=== PATIENT | female | born 1970 | race Caucasian/White ===

== ENCOUNTER 2018-05-07 07:26 | Emergency (ER) | payer BC, OTHER ==
[~2018-05-07] VITALS: Ht 172.7 cm; Wt 79.5 kg
[2018-05-07 07:30] VITALS: TEMP 98.4
[2018-05-07 08:11] LABS: BASO # 0.1 (0.0-0.2); BASO % 0.3 % (0.0-2.0); GRAN # 15.3 (1.4-6.5); GRAN % 88.1 % (42.2-75.2); LYMPH # 0.9 (1.2-3.4); LYMPH % 5.3 % (20.0-51.0); MEAN CELL VOLUME 95 fl (80.0-100.0); MEAN CORPUSCULAR HEMOGLOBIN 32 pg (27.0-31.0); MEAN CORPUSCULAR HGB CONC 33 g/dl (33.0-37.0); MEAN PLATELET VOLUME 10.2 fl (7.4-10.4); PLATELET COUNT 296 K/mm3 (130-400); RED BLOOD COUNT 4.76 M/mm3 (4.10-5.30); REDCELL DISTRIBUTION WIDTH-CV 12.5 % (11.5-14.5)
[2018-05-07 08:23] LABS: ALBUMIN 4.5 gm/dL (3.5-5.0); BILIRUBIN,TOTAL 0.5 mg/dL (0.0-1.0); CALCIUM 9.8 mg/dL (8.4-10.2); CREATININE, serum 1.01 mg/dL (0.52-1.25); POTASSIUM 3.7 mmol/L (3.4-5.0); TOTAL PROTEIN 7.9 gm/dL (6.4-8.2)
[2018-05-07] MEDS ORDERED: AMITRIPTYLINE H25 M1 PO (10:34)
[2018-05-07] MEDS ORDERED: PRINZIDE 12.5 M1 TA1 PO (10:35)
[2018-05-07] MEDS ORDERED: ZYRTEC 10MG10 MG PO (10:35)
[2018-05-07] MEDS ORDERED: LOESTRIN 24 FE1 TAB PO (10:36)
[2018-05-07] MEDS ORDERED: PHENERGAN 25 TA25 MG PO (12:24)
[2018-05-07] MEDS ORDERED: FLAGYL500 MG PO (12:24)
[2018-05-07] MEDS ORDERED: CIPRO 500MG TA500 MG PO (12:24)
[2018-05-07] MEDS ORDERED: ZOFRAN 4MG T4 MG/TAB PO (12:24)
[2018-05-07 13:05] VITALS: BP 123/87; PULSE 96
== END 2018-05-07 13:08 | disposition home or self-care (01) ==
LOC: COL.ER 07:26
PROVIDERS: Emergency Medicine
DX: K52.9 Noninfective gastroenteritis and colitis, unspecified (principal); Z88.0 Allergy status to penicillin
CPT/HCPCS: J2405; J2550; J7030; Q9967

== ENCOUNTER → 2019-07-24 | Outpatient (CLI) | payer OTHER ==
[~2019-07-24] MED LIST: AMITRIPTYLINE H25 M1 PO; CIPRO 500MG TA500 MG PO; FLAGYL500 MG PO; LOESTRIN 24 FE1 TAB PO; PHENERGAN 25 TA25 MG PO; PRINZIDE 12.5 M1 TA1 PO; ZOFRAN 4MG T4 MG/TAB PO; ZYRTEC 10MG10 MG PO
== END ==
LOC: COL.RAD 08:05
DX: R91.8 Other nonspecific abnormal finding of lung field (principal)
CPT/HCPCS: Q9967

== ENCOUNTER → 2019-07-30 | Outpatient (CLI) | payer OTHER | LOC: COL.RAD 07:50 | DX: R31.1 Benign essential microscopic hematuria (principal) | CPT/HCPCS: Q9967 ==